=== PATIENT | male | born 2000 | race Caucasian/White ===

== ENCOUNTER 2023-07-15 22:42 | Emergency (ER) | payer SELFPAY ==
[~2023-07-15] VITALS: Ht 172.7 cm; Wt 78.0 kg
[2023-07-15 22:44] VITALS: O2SAT 99
[2023-07-16] MEDS: ACETAMINOPHEN 325MG TABLET PO STA (00:47)
[2023-07-16] MEDS: KETOROLAC 30MG/ML VIAL IM STA (00:47)
[2023-07-16 01:02] LABS: HEMATOCRIT. 45.1 % (42.0-52.0); HEMOGLOBIN. 15.9 g/dL (14.0-18.0); MEAN CORPUSCULAR HEMOGLOBIN 30.8 pg (28.0-32.0); MEAN CORPUSCULAR HGB CONC 35.3 g/dL (31.0-37.0); MEAN CORPUSCULAR VOLUME 87.4 fL (80.0-94.0); MEAN PLATELET VOLUME 8.3 fl (7.4-10.4); PLATELET 214 x1000/uL (130-400); RED BLOOD CELL COUNT 5.16 mill/uL (4.7-6.1); RED CELL DISTRIBUTION WIDTH 12.5 % (11.6-14.6); WHITE BLOOD COUNT 7.8 x1000/uL (4.5-11.0)
[2023-07-16 01:05] LABS: DIFFERENTIAL COMMENT 1
[2023-07-16 01:09] LABS: CHLORIDE 105 mEq/L (98-107); INDEX HEMOLYSI 1 (1-3); INDEX ICTERIC 1 (1-4); INDEX LIPEMIC 1 (1-3); POTASSIUM 3.6 mEq/L (3.5-5.1); SODIUM 135 mEq/L (136-145)
[2023-07-16 01:09] LABS: CLARITY URINE CLEAR (CLEAR); COLOR URINE DARK YELLOW (YELLOW); GLUCOSE URINE NEGATIVE (NEGATIVE); KETONES URINE 3+ (NEGATIVE); LEUKOCYTE ESTERASE URINE NEGATIVE (NEGATIVE); NITRITE URINE NEGATIVE (NEGATIVE); OCCULT BLOOD URINE NEGATIVE (NEGATIVE); PH URINE 8.5 (4.5-8.0); PROTEIN URINE TRACE (NEGATIVE); SPECIFIC GRAVITY URINE 1.026 (1.005-1.030)
[2023-07-16 01:12] LABS: BACTERIA URINE NONE SEEN; RBC URINE NONE SEEN /hpf (0-2); SQUAMOUS EPITHELIAL CELL URINE NONE SEEN /lpf (RARE/1+); WBC URINE NONE SEEN /hpf (0-2); YEAST URINE NONE SEEN
[2023-07-16 01:17] LABS: ALANINE AMINOTRANSFERASE 30 IU/L (13-61); ALBUMIN 4.4 g/dL (3.4-5.0); ASPARTATE AMINOTRANSFERASE 27 IU/L (15-37); BILIRUBIN TOTAL 0.7 mg/dL (0.1-1.0); CALCIUM 9.1 mg/dL (8.5-10.1); CARBON DIOXIDE 23 mEq/L (21-32); CREATININE 0.9 mg/dL (0.6-1.3); GLUCOSE 97 mg/dL (70-105); PROTEIN TOTAL 8.7 g/dL (6.0-8.3); UREA NITROGEN BLOOD 10 mg/dL (7-21)
[2023-07-16 01:39] LABS: PLATELET ESTIMATE NORMAL
[2023-07-16] MEDS ORDERED: IBUP-2029 PO (03:16)
[2023-07-16 03:30] VITALS: BP 115/70; PULSE 85; RESP 18; TEMP 99.2
== END 2023-07-16 03:32 | disposition home or self-care (01) ==
LOC: ER 22:42
DX: B34.9 Viral infection, unspecified (principal); R50.9 Fever, unspecified; Z20.822 Contact with and (suspected) exposure to COVID-19
CPT/HCPCS: 99284; 80053; 81003; 87430; 85025; 87070; 87804 ×2; 36415; 71045; 96372; 87426; J1885; C9803; Z7610